=== PATIENT | female | born 1970 | race African-American/Black ===

== ENCOUNTER 2021-07-10 04:25 | Inpatient (IN) | payer BC ==
[2021-07-07 10:02] VITALS: BMI 20.8
[2021-07-10 06:37] LABS: CALCIUM 8.7 mg/dL (8.5-10.1)
[2021-07-10 06:38] LABS: ALBUMIN 3.2 g/dl (3.4-5.0); BLOOD UREA NITROGEN 13.1 mg/dL (7-18)
[2021-07-10 06:41] LABS: CREATININE 0.7 mg/dL (0.55-1.3)
[2021-07-10 06:42] LABS: BILIRUBIN,TOTAL 0.2 mg/dL (0.2-1); TOT PROT 7.2 g/dl (6.4-8.2)
[2021-07-10] MEDS ORDERED: ONDANSETRON 4 MG/2 ML VIAL ONE ×2 (07:36→08:48)
[2021-07-10] MEDS ORDERED: LIDOCAINE HCL 2% JELLY (5 ML/TUBE) ONE (07:36)
[2021-07-10] MEDS ORDERED: LIDOCAINE HCL/PF 2% SDV 5ML VIAL ONE (07:36)
[2021-07-10] MEDS ORDERED: DEXAMETHASONE SOD PHOSPHATE 4 MG/1 ML VIAL ONE ×2 (07:36→08:48)
[2021-07-10] MEDS ORDERED: ceFAZolin SODIUM 1 GM VIAL ONE (07:36)
[2021-07-10] MEDS ORDERED: NEOSTIGMINE METHYLSULFATE 0.5 MG/ML - 10 ML MDV ONE (07:37)
[2021-07-10] MEDS ORDERED: GLYCOPYRROLATE 0.2 MG/1 ML VIAL ONE ×2 (07:37→08:48)
[2021-07-10] MEDS ORDERED: PROPOFOL 20 ML ONE ×4 (07:38→09:25)
[2021-07-10] MEDS ORDERED: ROCURONIUM BROMIDE 100 MG/10 ML VIAL ONE (07:38)
[2021-07-10] MEDS ORDERED: SUCCINYLCHOLINE CHLORIDE 200 MG/10 ML SYRINGE ONE (07:38)
[2021-07-10] MEDS ORDERED: BUPIVACAINE LIPOSOME/PF (EXPAREL) 266 MG/20 ML VIAL ONE (07:43)
[2021-07-10] MEDS ORDERED: BUPIVACAINE HCL/PF 0.5% (5MG/ML) 10 ML VIAL ONE (07:44)
[2021-07-10] MEDS ORDERED: MIDAZOLAM HCL 2 MG/2 ML SINGLE DOSE VIAL ONE ×2 (07:45)
[2021-07-10] MEDS ORDERED: CEFAZOLIN 2 GM in DEXTROSE 5%-WATER - 100 ML IVPB ONE (08:00)
[2021-07-10] MEDS ORDERED: ceFAZolin SODIUM 1 GM VIAL IVPB ONE (08:38)
[2021-07-10] MEDS ORDERED: HYDROmorphone HCl 2 MG/ML VIAL ONE ×2 (08:50→10:53)
[2021-07-10] MEDS ORDERED: ONDANSETRON 4 MG/2 ML VIAL IVPUSH PRN (09:02)
[2021-07-10] MEDS ORDERED: LACTATED RINGERS SOLUTION 1,000 ML IV SCH (09:15)
[2021-07-10] MEDS ORDERED: oxyCODONE HCL 5 MG TABLET PO PRN (10:11)
[2021-07-10] MEDS: HYDROmorphone HCL CARPU-JECT 2 MG/1 ML DISP.SYRIN IVPUSH PRN ×4 (10:55→12:09)
[2021-07-10] MEDS ORDERED: LORazepam 2 MG/ML SDV VIAL ONE (11:19)
[2021-07-10] MEDS ORDERED: LORazepam 2 MG/ML SDV VIAL IVPUSH ONE (11:30)
[2021-07-10] MEDS ORDERED: IBUPROFEN 800 MG/8 ML IJ IVPB ONE (12:13)
[2021-07-10] MEDS: IBUPROFEN 800 MG/8 ML IJ IVPB PRN ×2 (12:18→20:05)
[2021-07-10] MEDS: CEFAZOLIN 2 GM in DEXTROSE 5%-WATER - 100 ML IVPB SCH (18:31)
[2021-07-10] MEDS: oxyCODONE HCL 5 MG TABLET PO PRN (18:34)
[2021-07-10] MEDS: SIMETHICONE 80 MG TAB.CHEW (FP) PO PRN (21:12)
[2021-07-10] MEDS ORDERED: NIFEdipine E.R. 30 MG TABLET PO ONE (21:43)
[2021-07-10] MEDS: LABETALOL HCL 200 MG TABLET (FP) PO SCH (22:13)
[2021-07-11] MEDS: CEFAZOLIN 2 GM in DEXTROSE 5%-WATER - 100 ML IVPB SCH (01:13)
[2021-07-11] MEDS: SIMETHICONE 80 MG TAB.CHEW (FP) PO PRN ×2 (05:34→12:16)
[2021-07-11] MEDS: oxyCODONE HCL 5 MG TABLET PO PRN (05:34)
[2021-07-11] MEDS: ACETAMINOPHEN 325 MG TABLET (FP) PO PRN ×2 (05:35→12:16)
[2021-07-11] MEDS: LABETALOL HCL 200 MG TABLET (FP) PO SCH ×3 (06:34→21:41)
[2021-07-11 07:48] LABS: BASO % 0.3 % (0-2.0); EOS % 0.6 % (0-4.5); HEMATOCRIT 25.5 % (32.4-45.2); HEMOGLOBIN 8.5 GM/dL (10.7-15.3); LYMPH % 17.3 % (8-40); MCH 25.7 pg (25.7-33.7); MCHC 33.3 g/dl (32.0-36.0); MEAN CELL VOLUME 77.2 fl (80-96); MEAN PLT VOLUME 8.1 fl (7.5-11.1); MONO % 8.9 % (3.8-10.2); NEUT % 72.9 % (42.8-82.8); PLATELET COUNT 423 10^3/uL (134-434); RDW 17.6 % (11.6-15.6); WHITE BLOOD COUNT 9.3 K/mm3 (4.0-10.0)
[2021-07-11] MEDS ORDERED: KETOROLAC TROMETHAMINE 10 MG TABLET PO SCH (16:00)
[2021-07-11] MEDS ORDERED: ONDANSETRON 4 MG/2 ML VIAL IVPB PRN (16:07)
[2021-07-11] MEDS: KETOROLAC TROMETHAMINE 30 MG/1 ML VIAL IVPUSH PRN (16:30)
[2021-07-11] MEDS: diphenhydrAMINE HCL 25 MG CAPSULE (FP) PO PRN (16:30)
[2021-07-11] MEDS: FAMOTIDINE 20 MG TABLET PO SCH ×2 (16:30→21:41)
[2021-07-11] MEDS ORDERED: KETOROLAC TROMETHAMINE 10 MG TABLET PO PRN (18:00)
[2021-07-12] MEDS: KETOROLAC TROMETHAMINE 30 MG/1 ML VIAL IVPUSH PRN (09:39)
[2021-07-12] MEDS: diphenhydrAMINE HCL 25 MG CAPSULE (FP) PO PRN (09:40)
[2021-07-12] MEDS: SIMETHICONE 80 MG TAB.CHEW (FP) PO PRN (09:40)
[2021-07-12] MEDS: LABETALOL HCL 200 MG TABLET (FP) PO SCH ×2 (10:13→10:21)
[2021-07-12] MEDS: FAMOTIDINE 20 MG TABLET PO SCH (10:14)
[2021-07-12 10:31] VITALS: BP 122/69; PULSE 92; TEMP 98.3
== END 2021-07-12 11:10 | disposition home or self-care (01) | DRG 743 ==
LOC: J2C 04:25 → EDSTATUS 08:00 → J3W 13:09
PROVIDERS: ADMIT Obstetrics & Gynecology; ATTEND Obstetrics & Gynecology
PROC: 0UB50ZZ Excision of Right Fallopian Tube, Open Approach (ICD-10-PCS; 2021-07-10)
PROC: 0UT90ZZ Resection of Uterus, Open Approach (ICD-10-PCS; principal; 2021-07-10 08:00)
DX: D25.9 Leiomyoma of uterus, unspecified (principal); N80.0 Endometriosis of uterus; N72 Inflammatory disease of cervix uteri; R10.2 Pelvic and perineal pain
CPT/HCPCS: 36415; 80053; 85025; 86780; 88307-TC; 93005; 93010; 94760